=== PATIENT | female | born 1995 | race Hispanic/Latino ===

== ENCOUNTER 2017-05-15 20:42 | Inpatient (IN) ==
[2017-05-15] MEDS ORDERED: HYDROXYZINE IM PRN (21:11)
[2017-05-15] MEDS ORDERED: PITOCIN 20 UNITS/LR 20 UNITS/1,000 ML IV.SOLN IV SCH (21:11)
[2017-05-15] MEDS ORDERED: CYTOTEC PO PRN (21:11)
[2017-05-15] MEDS ORDERED: HYDROXYZINE PO PRN (21:11)
[2017-05-15] MEDS ORDERED: MINERAL OIL PO PRN (21:11)
[2017-05-15] MEDS ORDERED: AMBIEN PO PRN (21:11)
[2017-05-15] MEDS ORDERED: PITOCIN 30 UNITS/LR 30 UNITS/500 ML IV.SOLN IV ONE (21:11)
[2017-05-15] MEDS ORDERED: XYLOCAINE-MPF 1% INJ PRN (21:11)
[2017-05-15] MEDS ORDERED: PERCOCET-5 PO PRN (21:11)
[2017-05-15] MEDS ORDERED: PERCOCET-10 PO PRN (21:11)
[2017-05-15] MEDS ORDERED: M-M-R II VACCINE SUBQ ONE (21:11)
[2017-05-15] MEDS ORDERED: PITOCIN IM PRN (21:11)
[2017-05-15] MEDS ORDERED: BENADRYL PO PRN (21:11)
[2017-05-15] MEDS ORDERED: NORCO-5 PO PRN (21:11)
[2017-05-15] MEDS ORDERED: PERI MEDS (DERMOPLAST/NUPERCAINAL/TUCKS) MISC PRN (21:11)
[2017-05-15] MEDS ORDERED: BOOSTRIX VACCINE IM ONE (21:11)
[2017-05-15] MEDS ORDERED: NORCO-10 PO PRN (21:11)
[2017-05-15] MEDS ORDERED: BENADRYL IV PRN (21:11)
--- NOTE | 2017-05-15 21:21 | OPERATIVE NOTE ---
PROCEDURE DATE: 05/15/2017 TYPE OF DELIVERY: Vaginal delivery. ATTENDED BY: Labor and delivery nurses in the emergency department. FINDINGS: At 2020, a 6 pound 8 ounce female was delivered in the emergency department. Apgars are not available. SUMMARY: Ms. Cordoba is a 22-year-old 2, now para 2. She states she is 35 weeks gestation. She was receiving care at Dr. Boyce' office. She presented to the emergency room having contractions and delivered in the emergency department with the aide of the labor and delivery nurses. She had a female infant that weighed 6 pounds and 8 ounces. I do not have Apgars. Once she was brought to the labor and delivery, the placenta was delivered spontaneously. It was intact. There were no cervical or vaginal lacerations. Blood loss is unknown. Patient remains in the LDR recovering without difficulty. Anticipate routine care. cc: Casimiro Dyer MD
[2017-05-15 22:29] LABS: MANUAL DIFF NEEDED? NO
[2017-05-15 22:35] LABS: BASO% 0.1 % (0.0-0.8); EOS# 0.04 X1000 (0.0-0.7); EOS% 0.3 % (0.0-10.0); HEMATOCRIT 33.7 % (37.0-47.0); HEMOGLOBIN 11.9 g/dL (12.0-16.0); IMM GRAN# 0.02 X1000 (0.0-0.04); IMM GRAN% 0.1 % (0.0-0.5); LYMPH# 1.76 X1000 (1.2-3.4); LYMPH% 12.8 % (20.5-51.1); MCH 31.9 PG (27-31); MCHC 35.3 g/dL (33-37); MCV 90.3 FL (81-99); MONO# 0.64 X1000 (0.11-0.59); MONO% 4.7 % (1.7-9.3); MPV 10.7 FL (7.4-10.4); PLT 260 X1000 (130-400); RBC 3.73 XMIL (4.2-5.4)
[2017-05-16] MEDS: MOTRIN PO PRN (02:57)
[2017-05-16 06:28] LABS: HEMATOCRIT 31.4 % (37.0-47.0); HEMOGLOBIN 10.6 g/dL (12.0-16.0); MCHC 33.8 g/dL (33-37); MCV 91.8 FL (81-99); MPV 11.1 FL (7.4-10.4); RBC 3.42 XMIL (4.2-5.4)
[2017-05-16] MEDS: PRECARE PO SCH (08:56)
[2017-05-16] MEDS: PERICOLACE PO SCH ×2 (21:14→22:36)
[2017-05-17] MEDS: MOTRIN PO PRN (04:54)
[2017-05-17] MEDS: PRECARE PO SCH (08:57)
[2017-05-17 09:11] LABS: HEMOGLOBIN A1C 5.1 % (4.8-6.0)
[2017-05-17 12:01] VITALS: BP 109/66
--- NOTE | 2017-05-18 12:52 | DISCHARGE SUMMARY ---
ADMISSION DATE: 05/15/2017 DISCHARGE DATE: 05/17/2017 ADMITTING DIAGNOSES: 1. Intrauterine , in active labor. 2. History of diabetes. 3. Poor care. DISCHARGE DIAGNOSES: 1. Intrauterine , in active labor. 2. History of diabetes. 3. Poor care PROCEDURES: Precipitous vaginal delivery. CONDITION: Stable. DIET: As tolerated. MEDICATIONS: [id number] nonsteroidals and [place] for pain. She is to continue her iron tablets. FOLLOWUP: Follow up in [address] Dyer. Please refer to Ms. Cordoba's delivery note. She presented to the emergency room in active labor, delivered in the emergency room. The baby had anomalies and is now being transferred to [place]. She is desiring discharge. She had apparently no complications during the delivery. Her care was complicated by diabetes, however, her hemoglobin A1c without medications is 5 with an estimated glucose value of 100. So we will not do anything concerning that. Her vital signs are stable. She is afebrile. She is alert and cooperative. PHYSICAL EXAMINATION: Within normal limits. LABORATORIES: Hemoglobin after delivery of 10.6. PLAN: We will discharge her to home. cc: MD Casimiro Guy MD
--- NOTE | 2017-05-19 16:00 | HISTORY AND PHYSICAL ---
Cheryl is a 22-year-old, now 2, para 2, who stated she was 35 weeks gestation when she presented to the emergency department having her baby. The baby was delivered in the emergency room and transported to labor and delivery where I delivered the placenta. PAST MEDICAL HISTORY: Is not obtainable due to language difficulties. She has had her care at Dr. Boyce and no records are available. PAST MEDICAL HISTORY: Unobtainable. PHYSICAL EXAMINATION: GENERAL: Shows a female in the immediate state. VITAL SIGNS: Stable. She is afebrile. CARDIOVASCULAR: Regular rate and rhythm without murmurs, rubs, or gallops. PULMONARY: Clear. BREASTS: No masses. ABDOMEN: Shows a firm fundus. The placenta and is intact. EXTREMITIES: No clubbing, edema or cyanosis. IMPRESSION: Delivery in the emergency department. PLAN: Will admit her, deliver the placenta and began care. cc: Casimiro Dyer MD
== END 2017-05-17 14:05 | disposition home or self-care (01) ==
LOC: P.LD 20:42 → P.WC 05-16 16:33
PROVIDERS: ADMIT Obstetrics & Gynecology; ATTEND Obstetrics & Gynecology